=== PATIENT | female | born 1960 ===

== ENCOUNTER 2018-05-01 10:50 | Emergency (ER) | payer OTHER ==
[2018-05-01 10:57] VITALS: RESP 18; TEMP 98
[2018-05-01 10:58] VITALS: BMI 28.7
--- NOTE | 2018-05-01 11:54 | ED PDOC ---
HPI: Psych/Substance Abuse Time Seen by Provider: 05/01/18 11:11 Chief Complaint (Nursing): Psychiatric Evaluation Chief Complaint (Provider): Psychiatric Evaluation History Per: Patient, Rn Complex Care (#[id number]) History/Exam Limitations: no limitations Onset/Duration Of Symptoms: Days, Waxing/Waning Current Symptoms Are (Timing): Still Present Associated Symptoms: denies: Suicidal Thoughts Additional Complaint(s): 57 year old female with a past medical history of depression who is presenting to the ED for evaluation of depression and anxiety ongoing for many years. Patient states that her psychiatrist cannot see her anymore. She denies any suicidal or homicidal ideation and offers no other medical complaints at this time. PMD: China Mcneill Past Medical History Reviewed: Historical Data, Nursing Documentation, Vital Signs Vital Signs: Last Vital Signs Temp 98 F 05/01/18 10:56 Pulse 119 H 05/01/18 10:56 Resp 18 05/01/18 10:56 BP 161/93 H 05/01/18 10:56 Pulse Ox 100 05/01/18 10:56 - Medical History PMH: Anemia, Depression Denies: Chronic Kidney Disease - Surgical History Surgical History: No Surg Hx - Family History Family History: States: Unknown Family Hx - Social History Current smoker - smoking cessation education provided: No Alcohol: None Drugs: Denies - Home Medications Home Medications: Ambulatory Orders Medication Instructions Recorded Alprazolam [Xanax] 0.5 mg PO BID 12/19/14 Ergocalciferol (Vitamin D2) 50,000 iu PO DAILY 12/19/14 [Vitamin D] Escitalopram [Lexapro] 10 mg PO DAILY 12/19/14 Ferrous Sulfate 325 mg PO DAILY 12/19/14 Onbum-3-Ldhu Ethyl Esters [Lovaza] 1 gm PO DAILY 12/19/14 oxyCODONE/Acetaminophen [Percocet 1 tab PO Q4 PRN #0 tab 12/24/14 5/325 mg Tab] - Allergies Allergies/Adverse Reactions: Allergies Allergy/AdvReac Type Severity Reaction Status Date / Time No Known Allergies Allergy Verified 12/19/14 10:38 Review of Systems ROS Statement: Except As Marked, All Systems Reviewed And Found Negative Psych: Positive for: Anxiety, Depression. Negative for: Suicidal ideation, Other (homicidal ideation) Physical Exam - Reviewed Nursing Documentation Reviewed: Yes Vital Signs Reviewed: Yes - Physical Exam Appears: Positive for: Non-toxic, No Acute Distress (but tearful ) Head Exam: Positive for: ATRAUMATIC, NORMAL INSPECTION, NORMOCEPHALIC Skin: Positive for: Normal Color, Warm, DRY Eye Exam: Positive for: EOMI, Normal appearance, PERRL Neck: Positive for: Normal, Painless ROM Cardiovascular/Chest: Positive for: Regular Rate, Rhythm. Negative for: Murmur Respiratory: Positive for: Normal Breath Sounds. Negative for: Respiratory Distress Gastrointestinal/Abdominal: Positive for: Normal Exam, Soft. Negative for: Tenderness Extremity: Positive for: Normal ROM. Negative for: Deformity, Swelling Neurologic/Psych: Positive for: Alert, Oriented. Negative for: Motor/Sensory Deficits - ECG O2 Sat by Pulse Oximetry: 100 (RA) Pulse Ox Interpretation: Normal Medical Decision Making Medical Decision Making: Time: 11:37 Plan: --Crisis Evaluation Scribe Attestation: Documented by Sugey Hendricks, acting as a scribe for Berta Beck MD. Provider Scribe Attestation: All medical record entries made by the Scribe were at my direction and personally dictated by me. I have reviewed the chart and agree that the record accurately reflects my personal performance of the history, physical exam, medical decision making, and the department course for this patient. I have also personally directed, reviewed, and agree with the discharge instructions and disposition. Disposition - Clinical Impression Clinical Impression: Anxiety - Disposition Disposition: Routine/Home Disposition Time: 13:18 Condition: STABLE Additional Instructions: THERAPY REFERRAL [facility] [address] [place] [address] THURSDAY-THURSDAY: 9AM-8PM THURSDAY AND THURSDAY: 10AM-6PM YOU CAN ALSO CALL THE [facility] AT [phone] Instructions: Anxiety, Adult (DC) Forms: Goalbook (Turkmen)
[2018-05-01 15:07] VITALS: BP 130/87; PULSE 92
[2018-05-06 10:56] VITALS: O2SAT 100
== END 2018-05-01 15:05 | disposition home or self-care (01) ==
LOC: H.ER 10:50
DX: F41.9 Anxiety disorder, unspecified (principal); Z00.8 Encounter for other general examination; Z86.59 Personal history of other mental and behavioral disorders